=== PATIENT | female | born 1950 | race Caucasian/White ===

== ENCOUNTER 2017-04-28 14:30 | Emergency (ER) | payer MEDICARE ==
--- NOTE | 2017-04-28 15:38 | UC ---
Patrick Moore Benjamin, scribed for Indra Boss MD on 04/28/17 at 1500 . Throat Pain/Nasal Danyel HPI - HPI Summary HPI Summary: 67yo female c/o sore throat and slight cough for 4 days. Pt also states that her ears has been bothering her, but denies fever or chills. Pt doesnt cough up any mucus and denies fever or chills. Son recently had strep throat. Hx of hypothyroidism and breast CA s/p double mastectomy. FHx of CAD. - History of Current Complaint Chief Complaint: UCRespiratory Stated Complaint: SORE THROAT Time Seen by Provider: 04/28/17 14:51 Hx Obtained From: Patient ?: No Onset/Duration: Gradual Onset - 4 days ago, Still Present Severity: Moderate Pain Intensity: 8 Pain Scale Used: 0-10 Numeric Cough: Nonproductive Associated Signs & Symptoms: Negative: Fever - Allergies/Home Medications Allergies/Adverse Reactions: Allergies Allergy/AdvReac Type Severity Reaction Status Date / Time No Known Allergies Allergy Verified 04/28/17 14:37 Home Medications: Home Medications Aspirin [Aspirin 81 MG TAB] 81 mg PO 04/28/17 [History] Atorvastatin* [Lipitor*] 10 mg PO 1700 04/28/17 [History Confirmed 04/28/17] Levothyroxine TAB* [Synthroid TAB*] 75 mcg PO 0800 04/28/17 [History Confirmed 04/28/17] Metoprolol Succinate XL TAB* [Toprol XL TAB*] 25 mg PO DAILY 04/28/17 [History Confirmed 04/28/17] PMH/Surg Hx/FS Hx/Imm Hx Endocrine History: Hypothyroidism - Surgical History Surgical History: Yes Surgery Procedure, Year, and Place: reconstructive s/p breast c/a - Family History Known Family History: Positive: Cardiac Disease Negative: Hypertension - Social History Occupation: Retired Lives: With Family Alcohol Use: Rare Substance Use Type: None Smoking Status (MU): Never Smoked Tobacco Review of Systems Constitutional: Negative Skin: Negative Eyes: Negative ENT: Sore Throat Respiratory: Cough Cardiovascular: Negative Gastrointestinal: Negative Genitourinary: Negative Motor: Negative Neurovascular: Negative Musculoskeletal: Negative Neurological: Negative Psychological: Negative All Other Systems Reviewed And Are Negative: Yes Physical Exam Triage Information Reviewed: Yes Appearance: Well-Appearing, No Pain Distress Vital Signs: Initial Vital Signs Temp 96.8 F 07/12/17 14:33 Pulse 64 04/28/17 14:33 Resp 16 04/28/17 14:33 BP 134/81 04/28/17 14:33 Pulse Ox 97 04/28/17 14:33 Vital Signs Reviewed: Yes Eyes: Positive: Conjunctiva Clear ENT: Positive: Normal ENT inspection, Pharyngeal erythema - mild, TMs normal. Negative: Tonsillar swelling, Tonsillar exudate Neck exam: Normal Respiratory: Positive: Lungs clear, Normal breath sounds, No respiratory distress, No accessory muscle use Cardiovascular: Positive: RRR, No Murmur Musculoskeletal: Positive: ROM Intact Neurological: Positive: Alert, Muscle Tone Normal Skin: Negative: rashes Throat Pain/Nasal Course/Dx - Course Course Of Treatment: Reviewed pt's medications list. she has negative strep rapid. DC home. - Differential Dx/Diagnosis Provider Diagnoses: Pharyngitis Discharge - Discharge Plan Condition: Good Disposition: HOME Patient Education Materials: Pharyngitis (ED) Referrals: [facility] [place] [facility] REFERRAL [Outside] The documentation as recorded by the Patrick de leon Benjamin accurately reflects the service I personally performed and the decisions made by Karyn tobar Walter, MD.
== END 2017-04-28 15:39 | disposition home or self-care (01) ==
LOC: UCEAST 14:30
DX: J02.9 Acute pharyngitis, unspecified (principal); E03.9 Hypothyroidism, unspecified
CPT/HCPCS: 87651; 99201; G0463